=== PATIENT | male | born 1970 | race Caucasian/White ===

== ENCOUNTER 2020-10-04 22:46 | Inpatient (IN) | payer MEDICARE, MEDICAID ==
[~2020-10-04] VITALS: Ht 190.5 cm; Wt 93.1 kg
[2020-10-05] MEDS ORDERED: ZOLPIDEM TARTRATE 10 MG TABLET PO PRN (03:00)
[2020-10-05] MEDS ORDERED: HALOPERIDOL 5 MG TABLET PO PRN (03:00)
[2020-10-05] MEDS ORDERED: LORazepam 2 MG TABLET PO PRN (03:00)
[2020-10-05 04:04] VITALS: BP 105/71
[2020-10-05] MEDS ORDERED: QUET100T PO (05:36)
[2020-10-05] MEDS ORDERED: TAMS-13 PO (05:36)
[2020-10-05] MEDS ORDERED: BUPR-93 PO (05:36)
[2020-10-05] MEDS ORDERED: PARO-38 PO (05:36)
[2020-10-05] MEDS ORDERED: CARV3 PO (05:36)
[2020-10-05] MEDS ORDERED: DIVA-80 PO (05:36)
[2020-10-05] MEDS ORDERED: QUET25TA PO (05:36)
[2020-10-05] MEDS ORDERED: IBUP-2071 PO (05:39)
[2020-10-05] MEDS ORDERED: MAGNESIUM HYDROXIDE SUSPENSION 30 ML UDCUP PO PRN (08:30)
[2020-10-05] MEDS ORDERED: ACETAMINOPHEN 325 MG TABLET PO PRN (08:30)
[2020-10-05] MEDS ORDERED: NICOTINE 14 MG/24 HOUR PATCH TD PRN (08:30)
[2020-10-05] MEDS ORDERED: MAG HYDROX/AL HYDROX/SIMETH ES 30 ML SUSPENSION UDCUP PO PRN (08:30)
[2020-10-05] MEDS ORDERED: GuaiFENesin/D-METHORPHAN [SUGAR-FREE] 200-20MG/10 ML SYRUP UDCUP PO PRN (08:30)
[2020-10-05] MEDS ORDERED: ALBUTEROL SULFATE HFA 90 MCG/PUFF 8 GM INHALER IH PRN (08:30)
[2020-10-05] MEDS ORDERED: IBUPROFEN 400 MG TABLET PO PRN (08:30)
[2020-10-05] MEDS ORDERED: CloNIDine HCL 0.1 MG TABLET PO PRN (08:30)
[2020-10-05] MEDS ORDERED: LOPERAMIDE HCL 2 MG CAPSULE PO PRN (08:30)
[2020-10-05] MEDS ORDERED: PETROLATUM,WHITE 28 GM JELLY TP PRN (08:30)
[2020-10-05] MEDS ORDERED: DOCUSATE SODIUM 100 MG CAPSULE PO PRN (08:30)
[2020-10-05] MEDS ORDERED: ONDANSETRON HCL 4 MG TABLET PO PRN (08:30)
[2020-10-05 08:40] VITALS: BP 132/79
[2020-10-05] MEDS: PARoxetine HCL 20 MG TABLET PO SCH (13:06)
[2020-10-05] MEDS: BuPROPion HCL XL 150 MG ER TABLET PO SCH (13:06)
[2020-10-05] MEDS: QUEtiapine FUMARATE 25 MG TABLET PO SCH (13:06)
[2020-10-05 16:11] VITALS: BP 105/67
[2020-10-05 20:25] VITALS: BP 111/75
[2020-10-05] MEDS: CARVEDILOL 3.125 MG TABLET PO SCH (20:26)
[2020-10-05] MEDS: DIVALPROEX SODIUM 500 MG ER TABLET PO SCH (20:38)
[2020-10-05] MEDS: QUEtiapine FUMARATE 100 MG TABLET PO SCH (20:38)
[2020-10-06 06:21] VITALS: BP 116/76
[2020-10-06 08:39] VITALS: BP 134/90
[2020-10-06] MEDS: PARoxetine HCL 20 MG TABLET PO SCH (09:52)
[2020-10-06] MEDS: QUEtiapine FUMARATE 25 MG TABLET PO SCH (09:53)
[2020-10-06] MEDS: TAMSULOSIN HCL 0.4 MG CAPSULE PO SCH (09:53)
[2020-10-06] MEDS: MULTIVITAMINS, THERAPEUTIC TABLET PO SCH (09:53)
[2020-10-06] MEDS: CARVEDILOL 3.125 MG TABLET PO SCH ×2 (09:53→16:36)
[2020-10-06] MEDS: BuPROPion HCL XL 150 MG ER TABLET PO SCH (09:57)
[2020-10-06 14:26] VITALS: BP 129/80
[2020-10-06 16:42] VITALS: BP 139/84
[2020-10-06] MEDS: QUEtiapine FUMARATE 100 MG TABLET PO SCH (20:54)
[2020-10-06] MEDS: DIVALPROEX SODIUM 500 MG ER TABLET PO SCH (20:54)
[2020-10-07 05:19] VITALS: BP 103/63
[2020-10-07 06:28] LABS: BASOPHILS % (AUTO) 2.2 % (0.0-2.0); EOSINOPHILS % (AUTO) 7.7 % (1.0-6.0); HEMATOCRIT 43.6 % (41-53); HEMOGLOBIN 14.7 g/dL (13.5-17.5); LYMPHOCYTES # (AUTO) 2.3 K/uL (1.0-4.8); MEAN CORPUSCULAR HGB CONC 33.7 G/dL (31.0-37.0); MEAN CORPUSCULAR VOLUME 98 fL (80-100); MONOCYTES # (AUTO) 0.7 K/uL (0.1-1.0); MONOCYTES % (AUTO) 11.9 % (2.0-9.0); NEUTROPHILS # (AUTO) 2.7 K/uL (1.8-7.7); NEUTROPHILS % (AUTO) 42.2 % (40.0-70.0); PLATELET COUNT (AUTO) 209 K/uL (150-450); RED BLOOD CELL COUNT(AUTO) 4.45 MIL/uL (4.50-5.90); RED CELL DISTRIBUTION WIDTH 12.2 % (11.5-14.5)
[2020-10-07 07:20] LABS: ANION GAP 6 mmol/L (8-16); CALCIUM, TOTAL 8.2 mg/dL (8.8-10.5); CARBON DIOXIDE 27 mmol/L (22-29); CHLORIDE 107 mmol/L (98-107); CREATININE 0.75 mg/dL (0.60-1.30); GLOMERULAR FILTR. RATE CALC > 60 mL/min (>60); GLUCOSE,RANDOM 86 mg/dL (70-110); POTASSIUM 4.1 mmol/L (3.5-5.1); SODIUM SERUM 140 mmol/L (136-145); THYROID STIMULATING HORMONE 1.87 uIU/mL (0.36-3.74); UREA NITROGEN, BLOOD 18 mg/dL (7-18)
[2020-10-07 08:03] VITALS: BP 124/75
[2020-10-07] MEDS: PARoxetine HCL 20 MG TABLET PO SCH (10:14)
[2020-10-07] MEDS: BuPROPion HCL XL 150 MG ER TABLET PO SCH (10:14)
[2020-10-07] MEDS: CARVEDILOL 3.125 MG TABLET PO SCH ×2 (10:14→17:02)
[2020-10-07] MEDS: TAMSULOSIN HCL 0.4 MG CAPSULE PO SCH (10:14)
[2020-10-07] MEDS: MULTIVITAMINS, THERAPEUTIC TABLET PO SCH (10:15)
[2020-10-07] MEDS: QUEtiapine FUMARATE 25 MG TABLET PO SCH (10:16)
[2020-10-07 12:17] LABS: CHOL/HDL RATIO 3.2 (4.2-7.3)
[2020-10-07 16:21] VITALS: BP 138/80
[2020-10-07] MEDS: DIVALPROEX SODIUM 500 MG ER TABLET PO SCH (21:06)
[2020-10-07] MEDS: QUEtiapine FUMARATE 100 MG TABLET PO SCH (21:07)
[2020-10-08 08:16] VITALS: BP 139/94
[2020-10-08] MEDS: CARVEDILOL 3.125 MG TABLET PO SCH ×2 (08:28→16:27)
[2020-10-08] MEDS: BuPROPion HCL XL 150 MG ER TABLET PO SCH (08:28)
[2020-10-08] MEDS: QUEtiapine FUMARATE 25 MG TABLET PO SCH (08:29)
[2020-10-08] MEDS: TAMSULOSIN HCL 0.4 MG CAPSULE PO SCH (08:29)
[2020-10-08] MEDS: PARoxetine HCL 20 MG TABLET PO SCH (08:29)
[2020-10-08] MEDS: MULTIVITAMINS, THERAPEUTIC TABLET PO SCH (08:49)
[2020-10-08 16:00] VITALS: BP 110/77
[2020-10-08] MEDS: QUEtiapine FUMARATE 100 MG TABLET PO SCH (20:31)
[2020-10-08] MEDS: DIVALPROEX SODIUM 500 MG ER TABLET PO SCH (20:31)
[2020-10-09] MEDS: QUEtiapine FUMARATE 25 MG TABLET PO SCH (10:30)
[2020-10-09] MEDS: BuPROPion HCL XL 150 MG ER TABLET PO SCH (10:30)
[2020-10-09] MEDS: TAMSULOSIN HCL 0.4 MG CAPSULE PO SCH (10:31)
[2020-10-09] MEDS: MULTIVITAMINS, THERAPEUTIC TABLET PO SCH (10:31)
[2020-10-09] MEDS: PARoxetine HCL 20 MG TABLET PO SCH (10:31)
[2020-10-09] MEDS: CARVEDILOL 3.125 MG TABLET PO SCH ×2 (10:32→16:25)
[2020-10-09 10:54] VITALS: BP 121/85
[2020-10-09 16:01] VITALS: BP 124/77
[2020-10-09] MEDS: DIVALPROEX SODIUM 500 MG ER TABLET PO SCH (20:33)
[2020-10-09] MEDS: QUEtiapine FUMARATE 100 MG TABLET PO SCH (20:33)
[2020-10-09 21:08] VITALS: BP 128/82
[2020-10-09 22:08] VITALS: BP 123/76
[2020-10-10 05:01] VITALS: BP 114/76
[2020-10-10 08:31] VITALS: BP 125/84
[2020-10-10] MEDS: TAMSULOSIN HCL 0.4 MG CAPSULE PO SCH (08:37)
[2020-10-10] MEDS: BuPROPion HCL XL 150 MG ER TABLET PO SCH (08:37)
[2020-10-10] MEDS: MULTIVITAMINS, THERAPEUTIC TABLET PO SCH (08:37)
[2020-10-10] MEDS: CARVEDILOL 3.125 MG TABLET PO SCH (08:37)
[2020-10-10] MEDS: QUEtiapine FUMARATE 25 MG TABLET PO SCH (08:37)
[2020-10-10] MEDS: PARoxetine HCL 20 MG TABLET PO SCH (08:37)
[2020-10-10] MEDS ORDERED: DIVA-80 PO (12:37)
[2020-10-10] MEDS ORDERED: CARV3 PO (12:37)
[2020-10-10] MEDS ORDERED: BUPR-93 PO (12:37)
[2020-10-10] MEDS ORDERED: PARO-38 PO (12:37)
[2020-10-10] MEDS ORDERED: QUET100T PO (12:37)
[2020-10-10] MEDS ORDERED: TAMS-13 PO (12:37)
[2020-10-10] MEDS ORDERED: QUET25TA PO (12:37)
== END 2020-10-10 15:40 | disposition home or self-care (01) | DRG 885 ==
LOC: B2X 10-05 02:00 → 3EX 10-06 13:22
DX: F25.0 Schizoaffective disorder, bipolar type (principal); G82.20 Paraplegia, unspecified; L03.115 Cellulitis of right lower limb; L03.116 Cellulitis of left lower limb; R45.851 Suicidal ideations; I10 Essential (primary) hypertension; N40.0 Benign prostatic hyperplasia without lower urinary tract symptoms; Z79.899 Other long term (current) drug therapy; Z87.820 Personal history of traumatic brain injury; Z91.5 Personal history of self-harm; Z20.822 Contact with and (suspected) exposure to COVID-19
CPT/HCPCS: 80048; 80061; 84443; 85025; G0378